=== PATIENT | male | born 1965 | race Caucasian/White ===

== ENCOUNTER 2024-12-02 05:39 | Emergency (ER) | payer OTHER, SELFPAY ==
[2024-12-02 05:42] VITALS: BP 164/89
--- NOTE | 2024-12-02 06:17 | ED.GENMED ---
History of Present Illness
General
Chief Complaint: Flank Pain
Source: patient
Exam Limitations: none
Time Seen by Provider: 12/02/24 06:06
Nursing documentation reviewed up to this point in time: agreed with
History of Present Illness
History of Present Illness:
Patient is a 59-year-old male who presents to the ER for evaluation of left lower back pain. Patient noticed this on Sunday night 2 nights ago. He denies any injury . He reports it is worse with movement ,twisting ,sitting up. He has been taking
Naprosyn. He denies any ration of pain. Denies any associated nausea or vomiting. Denies any abdominal pain. Denies any urinary frequency urgency or dysuria. Impression acute distress. No hematuria. He denies any radiation to legs. No bowel
or bladder incontinence. No saddle paresthesia.
Past History
Past History
ED Past Medical History: None and Other (Pneumonia every year until he was 16 according to mother.)
ED Past Surgical History: None and Other (Rectal cyst removed.)
Social History
Tobacco: Non-smoker
Personal: Single
Living: with family
Employment: Employed
Review of Systems
Review of Systems
Allergies reviewed?: Yes
All Other Systems: ROS reviewed and negative except as documented in HPI and ROS
Constitutional: Reports no symptoms; Denies fever, fatigue or chills
Respiratory: Reports no symptoms
Cardiac: Reports no symptoms
ABD/GI: Reports no symptoms
: Reports no symptoms; Denies flank pain, urgency or discharge
Musculoskeletal: Reports back pain
Skin: Reports no symptoms
Neurological: Reports no symptoms
Psychiatric: Reports no symptoms
Phy Exam
General Physical Exam
General Presentation: no apparent distress
General age: appears stated age
General Skin: warm and dry
General Habitus: normal
General Mental: alert
General Hydration: appears well hydrated
Gastrointestinal Exam
Gastrointestinal Exam: non tender and soft
Neurological Exam
Neurological Exam: alert and oriented x3
Musculoskeletal Exam
Musculoskeletal Exam: full ROM and other ( normal inspection to back, +tenderness to left lower paralumbar region no CVA tenderness)
Skin Exam
Skin Exam: normal color and warm/dry
Psychiatric Exam
Psychiatric Exam: normal mood/affect
Course
Orders/Labs/Results
Orders:
Orders
12/02/24 06:16
Acetaminophen [Tylenol] 1,000 mg PO NOW STA
12/02/24 06:16
Lidocaine [Lidocaine 4% Patch] 1 patch TOPICAL NOW STA
Apply Lidocaine patch(s) to:: left lower lumbar region
Vital Signs
Initial and Last Documented VS:
Initial Vital Signs
Temp Pulse Resp BP Pulse Ox
97.7 F 66 18 164/89 96
12/02/24 05:42 12/02/24 05:42 12/02/24 05:42 12/02/24 05:42 12/02/24 05:42
Last Documented Vital Signs
Temp Pulse Resp BP Pulse Ox
97.7 F 66 18 164/89 96
12/02/24 05:42 12/02/24 05:42 12/02/24 05:42 12/02/24 05:42 12/02/24 05:42
MDM/Problems Addressed
Differential Diagnosis Includes:
Not limited to muscular strain sprain, less likely renal stone
MDM/Problems Addressed:
Symptoms are consistent with muscular low back pain. Patient with no neurological deficits and no acute distress. Has been taking Naprosyn. Will add Flexeril, discussed ice alternating with heat. Will also prescribe lidocaine patch to patient's
pharmacy. Discussed to return if any worsening of symptoms and f/u with primary doctor.
*Critical Care Note
Total Time (30-74mins, 75-104mins- exclusive of procedures): Not Applicable
ED Attending Note
-
Portions of this chart may have been created with voice recognition software.� Occasional wrong word or��sound alike� substitutions may have occurred due to the inherent limitations of voice recognition software.
Discharge Plan
Departure
Patient Disposition: Home (Routine Discharge)
Date of Disposition: 12/02/24
Time of Disposition: 06:22
Patient with high blood pressure during this ER visit?: Yes
Condition: Fair
Covid-19: Not Applicable
Discharge Problem:
Low back pain
Instructions: Low back pain - ED discharge instructions, BLOOD PRESSURE
Prescriptions:
New
cyclobenzaprine 10 mg tablet
10 mg PO Q8H PRN (Reason: muscle pain) Qty: 10 0RF
lidocaine 5 % adhesive patch,medicated
1 patch topical DAILY Qty: 15 0RF
No Action
bacitracin 1 APPLIC ointment
0.25 inch OPHTHALMIC HS
Patient Comments:
Right eye
prednisolone acetate (PF) 5 ML drops,suspension
1 drp OP MOWEFR
Patient Comments:
Right eye
Stand Alone Forms: Return to Work
Activity Restrictions/Additional Instructions:
As discussed you may alternate between ice and heat. You may ice today for the next 24 hours 20 minutes at a time several times a day followed by warm moist heat. You may continue to take your Naprosyn. In addition a prescription for muscle
laxer sent to your pharmacy take as directed. No driving while taking this medication. This medication may cause drowsiness. In addition a prescription for lidocaine patch was sent to your pharmacy. Use as directed. Avoid heavy lifting/bending;
may gently walk. Follow-up with family doctor in the next 2 to 3 days for reevaluation .
return if any worsening of symptoms
Interventions
Interventions:
*Risk Screen - Suicide Last Done: 12/02/24 05:42
*General Assessment Last Done: 12/02/24 06:15
*ED- Fall Risk Assessment Last Done: 12/02/24 06:15
*ED COVID-19 Vaccine History Last Done: 12/02/24 06:15
AY-Lszmoi-Yrtvyoqbfc Assessment Last Done: 12/02/24 06:15
ED-Male Genitourinary Assessment Last Done: 12/02/24 06:15
Discharge Date and Time
Print Language: [id number]
[2024-12-02 06:19] VITALS: BMI 27.2
[2024-12-02] MEDS: TYLENOL 1000 MG PO (06:22)
[2024-12-02] MEDS: LIDOCAINE 4% PATCH 1 PATCH TOPICAL (06:23)
== END 2024-12-02 06:25 | disposition home or self-care (01) ==
LOC: EMR 05:39
PROVIDERS: EMERGENCY PHYSICIAN Emergency Medicine; FAMILY PHYSICIAN Family Medicine
DX: M54.50 Low back pain, unspecified (principal)
CPT/HCPCS: 99283

== ENCOUNTER → 2025-01-06 16:33 | Outpatient (REF) | payer OTHER, SELFPAY | LOC: RAD 16:33 | PROVIDERS: ATTENDING PHYSICIAN Family Medicine | DX: S30.0XXA Contusion of lower back and pelvis, initial encounter (principal) | CPT/HCPCS: 72220 ==